=== PATIENT | female | born 1950 | race Caucasian/White ===

== ENCOUNTER 2018-10-25 23:38 | Emergency (ER) | payer MEDICARE, OTHER ==
[~2018-10-25] VITALS: Ht 167.6 cm; Wt 61.5 kg
[2018-10-26] MEDS ORDERED: ACETAMINOPHEN 500 MG TABLET PO ONE
[2018-10-26] MEDS ORDERED: ASPIRIN 81 MG TABLET CHEW PO ONE
[2018-10-26] MEDS ORDERED: ACETAMINOPHEN 500 MG TABLET ONE (00:11)
[2018-10-26] MEDS ORDERED: ASPIRIN 81 MG TABLET CHEW ONE (00:12)
[2018-10-26 00:17] LABS: BASOPHILS # (AUTO) 0.04 x10^3/uL (0-0.1); BASOPHILS % (AUTO) 1 % (0-1); EOSINOPHILS # (AUTO) 0.24 x10^3/uL (0-0.4); EOSINOPHILS % (AUTO) 4 % (1-7); LYMPHOCYTES # (AUTO) 2.29 x10^3/uL (1-3.4); LYMPHOCYTES % (AUTO) 33 % (22-44); MD NO; MEAN CORPUSCULAR HEMOGLOBIN 31.2 pg (27.0-34.8); MEAN CORPUSCULAR HGB CONC 33.6 g/dL (32.4-35.8); MEAN PLATELET VOLUME 7.3 fL (7.4-10.4); MONOCYTES # (AUTO) 0.45 x10^3/uL (0.2-0.8); MONOCYTES % (AUTO) 7 % (2-9); NEUTROPHILS # (AUTO) 3.84 x10^3/uL (1.8-6.8); NEUTROPHILS % (AUTO) 56 % (42-75); PLATELET COUNT 285 x10^3/uL (130-400); RED BLOOD COUNT 4.51 x10^6/uL (3.82-5.3); RED CELL DISTRIBUTION WIDTH 14.5 % (9.6-15.2)
--- NOTE | 2018-10-26 00:21 | NUR ---
PT TO XRAY
[2018-10-26 00:28] LABS: ALBUMIN 4.4 g/dL (3.4-5.0); ANION GAP 6 mmol/L (5-15); CHLORIDE 111 mmol/L (98-107); CREATININE 1.08 mg/dL (0.55-1.02)
[2018-10-26 00:32] LABS: TROPONIN I < 0.015 ng/mL (0.000-0.045)
[2018-10-26] MEDS ORDERED: BUPR300T49 PO (00:45)
[2018-10-26] MEDS ORDERED: LIOT5TAB10 PO (00:45)
[2018-10-26] MEDS ORDERED: NITR50CA11 PO (00:45)
[2018-10-26] MEDS ORDERED: Z PACK PO (00:45)
--- NOTE | 2018-10-26 01:00 | NUR ---
pt provided and educated is.
[2018-10-26 01:10] VITALS: BP 125/106
== END 2018-10-26 01:44 | disposition home or self-care (01) ==
LOC: ED 10-26 00:58
DX: R07.89 Other chest pain (principal); R07.1 Chest pain on breathing
CPT/HCPCS: 36415; 71046; 80048; 82040; 84484; 85025; 93005; 99284